=== PATIENT | female | born 1995 ===

== ENCOUNTER 2022-05-13 13:36 | Emergency (ER) | payer SELFPAY ==
[2022-05-13] MEDS ORDERED: Sodium Chloride 0.9% 1,000 ML IV ONE (15:34)
[2022-05-13 16:38] LABS: CARBON DIOXIDE,CO2 24.3 mmol/L (21.0-32.0); POTASSIUM,K 4.1 mmol/L (3.5-5.1)
[2022-05-13] MEDS ORDERED: Ketorolac 30 MG/ML SDV IVPUSH ONE (17:39)
[2022-05-13] MEDS ORDERED: Ondansetron 4 MG/2 ML SDV IVPUSH ONE (17:39)
== END 2022-05-13 18:16 | disposition home or self-care (01) ==
LOC: MW.ED 13:36
DX: R51.9 Headache, unspecified (principal)
CPT/HCPCS: 36415; 70450; 80048; 84703; 85025; 96361; 96374; 96375; 99284; J1885; J2405; J7030; 99282